=== PATIENT | male | born 1945 | race Caucasian/White ===

== ENCOUNTER → 2024-01-04 | Outpatient (CLI) | payer MEDICARE | END | disposition home or self-care (01) | LOC: LABWHC1 12:44 | PROVIDERS: ATTEND Otolaryngology | DX: J30.89 Other allergic rhinitis (principal) | CPT/HCPCS: 36415 ==

== ENCOUNTER → 2024-01-04 | Outpatient (CLI) | payer MEDICARE ==
--- NOTE | 2024-01-05 14:35 | CT ---
EXAMINATION TYPE: CT sinus wo con CT DLP: 642.5 mGycm, Automated exposure control for dose reduction was used. DATE OF EXAM: 01/04/2024 12:30 PM COMPARISON: . CLINICAL INDICATION:Male, 78 years old with history of J32.0 CHRONIC MAXILLARY SINUSITIS; , chronic m axillary sinusitis TECHNIQUE: Multiple thin axial images were obtained through the paranasal sinuses without the use of IV contrast. Additional coronal and sagittal reformatted images were submitted for evaluation. Contrast used: none Oral contrast used: none FINDINGS: Frontal sinuses: Coastal thickening especially right sinus Frontal Recess: Right frontal recess is li barb occluded with mucus. Maxillary Sinuses: Multiple mucous retention cysts and diffuse moderate mucosal thickening present. Maxillary Infundibula([facility]): Postsurgical changes at the infundibulum are present and patent. Ethmoid sinuses: Scattered mucosal thickening throughout. Sphenoid sinuses: Normally developed and aerated. Sphenoid sinus pneumatization with mucosal thicke facundo without evidence of dehiscence. No dehiscence of carotid canal. No evidence of optic nerve dehi scence within the sphenoid sinus. Sphenoethmoidal recesses: Partially occluded. Nasal septum: Within normal limits.. Nasal Turbinates: Within normal limits. Mastoid air cells & middle ears: The air cells are clear. The middle ears are grossly unremarkable. Modified Soft tissues & Brain: Partially seen without gross abnormality. Globes are intact. Other: Cribriform plate demonstrates symmetric No evidence of bony dehiscence of skull base. Lamina papyracea is intact without evidence of remote orbital fracture or orbital prolapse into the e thmoid sinus. No pneumatization of the butch cam. IMPRESSION: 1. Diffuse scattered sinus disease throughout. 2. The ostiomeatal units are postsurgical, but patent
== END | disposition home or self-care (01) ==
LOC: RADCTMAIN 12:11
PROVIDERS: ATTEND Otolaryngology
DX: J32.0 Chronic maxillary sinusitis (principal)
CPT/HCPCS: 70486

== ENCOUNTER 2024-03-30 08:31 | Day surgery (SDC) | payer MEDICARE ==
[~2024-03-30 08:31] MED LIST: HYDROmorphone 0.5 MG/0.5 ML SYRINGE IVP PRN
[2024-03-30] MEDS: IV FLUID CONTINUATION 1,000 ML IV ONE (09:04)
[2024-03-30] MEDS: LACTATED RINGERS 1,000 ML IV SCH (09:04)
[2024-03-30] MEDS: OXYMETAZOLINE 0.05% NASL SPRAY 1 SPRAY BOTTLE EA NOSTRIL PRN (09:10)
[2024-03-30] MEDS: FAMOTIDINE 20 MG/2 ML VIAL IV PRN (09:17)
[2024-03-30] MEDS: ONDANSETRON 4 MG/2 ML VIAL IVP STA (09:28)
[2024-03-30] MEDS: DEXAMETHASONE SOD PHOSPHATE 4 MG/ML 1 ML VIAL IVP STA (09:28)
[2024-03-30] MEDS ORDERED: PROPOFOL 10 MG/ML 20 ML VIAL IV ONE (09:46)
[2024-03-30] MEDS ORDERED: SUCCINYLCHOLINE CHLORIDE 200 MG/10 ML VIAL IV ONE (09:46)
[2024-03-30] MEDS ORDERED: fentaNYL (PF) 50 MCG/ML 2 ML AMP ONE (09:46)
[2024-03-30] MEDS ORDERED: MIDAZOLAM 2 MG/2 ML VIAL ONE (09:46)
[2024-03-30] MEDS: BUPIVACAINE (PF) 0.5% 30 ML VIAL SQ ONE (09:50)
[2024-03-30] MEDS: LIDOCAINE 1%-EPI 1:100,000 20 ML VIAL SQ ONE (09:50)
[2024-03-30] MEDS: EPINEPHrine 1 MG/ML (MDV) 30 ML VIAL TOPICAL ONE (10:23)
[2024-03-30] MEDS: LACTATED RINGERS 1,000 ML IV ONE (11:11)
[2024-03-30 11:32] VITALS: TEMP 97.6
[2024-03-30] MEDS: LABETALOL SYRINGE 5 MG/ML (4 ML SYR) IVP STA (12:02)
[2024-03-30] MEDS: hydrALAZINE HCL 20 MG/ML 1 ML VIAL IVP STA ×2 (12:24→13:13)
[2024-03-30 13:10] VITALS: RESP 18
[2024-03-30] MEDS ORDERED: LABETALOL 5 MG/ML VIAL MDV IVP STA (13:56)
[2024-03-30] MEDS: oxyCODONE-APAP 5-325MG 1 EACH TAB PO STA (14:33)
[2024-03-30] MEDS: ENALAPRILAT 1.25 MG/ML 1 ML VIAL IVP STA (15:19)
[2024-03-30 15:37] VITALS: PULSE 96
[2024-03-30 16:01] VITALS: BP 140/79
--- NOTE | 2024-05-04 13:00 | OP ---
OPERATIVE REPORT DATE OF SERVICE : PREOPERATIVE DIAGNOSIS: Chronic pansinusitis with sinonasal polyposis. POSTOPERATIVE DIAGNOSIS: Chronic pansinusitis with sinonasal polyposis. PROCEDURES PERFORMED: Bilateral functional endoscopic sinus surgery with nasal polypectomy and functional endoscopic sinus surgery including all sinuses with polypectomy. BLOOD LOSS: Minimal. COMPLICATIONS: None. COUNTS: Sponge, instrument, and needle count correct. ANESTHESIA: General. ESTIMATED BLOOD LOSS: Minimal. OPERATIVE INDICATIONS: This patient has had chronic pansinusitis with sinonasal polyposis and has failed appropriate maximal medical therapy. The patient was declined Dupixent and surgery appeared to be his best and the last option. All risks, benefits, and alternative therapies were discussed in detail. Risks of bleeding, infection, need for secondary surgery etc., were explained, skull base injury, change in sense of smell etc., were all discussed in detail. Consent was obtained and all questions were answered. FINDINGS: The patient had widespread intranasal polyps. He had polyp and diseased sinuses throughout all sinuses. DESCRIPTION OF PROCEDURE: This patient was taken to the operative room, placed in supine position. A general inhalation anesthetic was administered to the patient by mask and subsequently intubated with a cuffed endotracheal tube by the Department of Anesthesia with a functioning IV line in place. The patient was monitored throughout the entire case by the Department of Anesthesia. The lateral nasal wall, sphenopalatine ganglion, middle turbinates were all injected with lidocaine 1% with epinephrine 1:100,000, and 10 minutes were allowed to wait for full vasoconstrictive effect to take place. At this time, a 0 degree Santamaria mckay endoscope was placed intranasally bilaterally and with the use of a microdebrider utilizing a 4 mm blade, intranasal polyps were removed bilaterally. After all nasal polyps were removed, we entered the maxillary sinuses bilaterally and we removed all polyp material from the maxillary sinuses. The maxillary sinus was opened widely and all polyp material was removed. We utilized an olive tip suction and Fam's another instrumentation to navigate the turn. After all maxillary sinus disease was removed and the maxillary sinuses were opened, we entered the ethmoid sinuses. We removed any and all ethmoid septations and diseased tissue from the ethmoid sinuses bilaterally. Under direct microscopic visualization, we removed all ethmoid polyp disease and septations both anteriorly and posteriorly bilaterally. The anterior and posterior ethmoid sinuses were opened widely and all diseased tissue was removed. We then entered the sphenoid sinuses below the superior turbinate and we entered the sphenoid sinus. We removed all diseased tissue from the sphenoid sinus. After all diseased tissue was removed from the sphenoid sinus, we then entered the frontal sinus, reopened the nasofrontal duct. The nasofrontal duct was widely opened. All diseased tissue was removed. We did utilize balloon for assistance initially to locate the nasofrontal duct and it was dilated, but we then entered the frontal sinuses bilaterally. We explored the frontal sinuses bilaterally with a 70 degree Santamaria mckay scope and we removed all frontal sinus septations. The patient tolerated this well and followup will be in the office in 1 week for recheck. The patient is to contact me if any problems should arise in the interim. Again, to summarize, intranasal polyps were removed. All sinuses were opened with the use of the 0 and 70 degree Santamaria mckay scope. All sinuses were explored. The patient tolerated this well. Follow up will be in the office in 1 week for a recheck. The patient is to contact me if any problems should arise in the interim. MMODL / IJN: [id number] /
== END 2024-03-30 16:07 | disposition home or self-care (01) ==
LOC: OR 08:31
PROVIDERS: ATTEND Otolaryngology
DX: J32.4 Chronic pansinusitis (principal); J01.40 Acute pansinusitis, unspecified; J33.8 Other polyp of sinus; E66.9 Obesity, unspecified; Z68.31 Body mass index [BMI] 31.0-31.9, adult; E78.5 Hyperlipidemia, unspecified; K21.9 Gastro-esophageal reflux disease without esophagitis; Z91.011 Allergy to milk products; Z91.09 Other allergy status, other than to drugs and biological substances; Z87.891 Personal history of nicotine dependence; Z79.51 Long term (current) use of inhaled steroids; Z79.899 Other long term (current) drug therapy
CPT/HCPCS: 88305; 31237; C1726; J0171; J2250; J0330; J0360; J1100; J2405; J3010; J3490; J2704; J0665; J1920